=== PATIENT | female | born 1940 | race Caucasian/White ===

== ENCOUNTER 2020-07-18 16:10 | Emergency (ER) | payer MEDICARE, MEDICAID ==
[~2020-07-18] VITALS: Ht 160 cm; Wt 122.5 kg
[2020-07-18 16:13] VITALS: BP_SYST 86
[2020-07-18] MEDS ORDERED: SSREG SUBCUT (16:39)
[2020-07-18] MEDS ORDERED: ACET-73 PO (16:39)
[2020-07-18] MEDS ORDERED: OXYIR5 PO (16:39)
[2020-07-18] MEDS ORDERED: PRO40 PO (16:39)
[2020-07-18] MEDS ORDERED: FURO-150 PO (16:39)
[2020-07-18] MEDS ORDERED: UMEC62.5 IH (16:39)
[2020-07-18] MEDS ORDERED: BENA10TA73 PO (16:39)
[2020-07-18] MEDS ORDERED: ATOR40TA68 PO (16:39)
[2020-07-18] MEDS ORDERED: DICL50TA9 PO (16:39)
[2020-07-18] MEDS ORDERED: ALEN10TA25 PO (16:39)
[2020-07-18] MEDS ORDERED: BUSP10TA3 PO (16:39)
[2020-07-18] MEDS ORDERED: CYM30 PO (16:39)
[2020-07-18] MEDS ORDERED: TRAM100C3 PO (16:39)
[2020-07-18] MEDS ORDERED: BISA-79 PO (16:39)
[2020-07-18] MEDS ORDERED: METF-380 PO (16:39)
[2020-07-18] MEDS ORDERED: METO25TA3 PO (16:39)
[2020-07-18] MEDS ORDERED: DIPH25CA83 PO (16:39)
[2020-07-18] MEDS ORDERED: ESCI20TA PO (16:39)
[2020-07-18] MEDS ORDERED: DOCU-144 PO (16:39)
[2020-07-18] MEDS ORDERED: SENN8.6T19 PO (16:39)
[2020-07-18] MEDS ORDERED: MOM PO (16:39)
[2020-07-18] MEDS ORDERED: APIX5TAB4 PO (16:39)
[2020-07-18] MEDS ORDERED: FLO44 INH (16:39)
[2020-07-18 17:03] LABS: BILIRUBIN,URINE NEGATIVE (NEGATIVE); BLOOD, URINE 1+ (NEGATIVE); CLARITY/URINE SL CLOUDY (CLEAR); COLOR,URINE YELLOW (YELLOW); GLUCOSE,URINE NEGATIVE (NEGATIVE); KETONES,URINE NEGATIVE (NEGATIVE); LEUKOCYTE ESTERASE ,URINE 3+ (NEGATIVE); NITRITE, URINE POSITIVE (NEGATIVE); PROTEIN URINE NEGATIVE (NEGATIVE)
[2020-07-18 17:04] LABS: BASOPHILS # (AUTO) 0.1 K/uL (0.0-0.2); BASOPHILS % (AUTO) 0.8 % (0.0-2.0); EOSINOPHILS # (AUTO) 0.1 K/uL (0.0-0.4); EOSINOPHILS % (AUTO) 0.8 % (0.0-4.0); HEMOGLOBIN 9.6 g/dL (12.0-16.0); LYMPHOCYTES # (AUTO) 0.7 K/uL (1.0-5.5); LYMPHOCYTES % (AUTO) 8.3 % (20.5-51.5); MEAN CORPUSCULAR HEMOGLOBIN 32 pg (27-31); MEAN CORPUSCULAR HGB CONC 33 % (32-36); MEAN CORPUSCULAR VOLUME 95 fL (79.0-98.0); MONOCYTES # (AUTO) 0.4 K/uL (0.0-1.0); MONOCYTES % (AUTO) 4.6 % (1.7-9.3); NEUTROPHILS # (AUTO) 7.6 K/uL (1.8-7.7); NEUTROPHILS % (AUTO) 85.5 % (40.0-70.0); PLATELET COUNT (AUTO) 189 K/uL (130-430); RED BLOOD CELL COUNT(AUTO) 3.06 MIL/uL (4.2-6.2); RED CELL DISTRIBUTION WIDTH 18.3 % (9.0-15.0); WHITE BLOOD COUNT (AUTO) 8.9 K/uL (4.8-10.8)
[2020-07-18] MEDS ORDERED: NACL 0.9% 1,000 ML IV ONE (17:30)
[2020-07-18 17:33] LABS: BACTERIA,URINE MANY /HPF (None Seen); WBC,URINE 50-80 /HPF (0-3)
[2020-07-18 17:33] LABS: INR 1.2 (0.8-1.2); PROTHROMBIN TIME 12.5 SECS (9.5-12.5)
[2020-07-18 17:37] LABS: MUCUS,URINE 1+ /LPF (None Seen)
[2020-07-18 17:43] LABS: ANION GAP 8 (5-15); CALCIUM 7.8 mg/dL (8.4-11.0); CHLORIDE 104 mmol/L (98-107); CREATININE 0.99 mg/dL (0.55-1.30); GLUCOSE 111 mg/dL (70-99); POTASSIUM 3.9 mmol/L (3.5-5.1); SODIUM SERUM 140 mmol/L (136-145); UREA NITROGEN, BLOOD 18 mg/dL (8-21)
[2020-07-18 17:49] LABS: ALANINE AMINOTRANSFERASE 27 U/L (12-78); ALBUMIN 2.3 g/dL (3.4-4.8); ASPARTATE AMINOTRANSFERASE 23 U/L (10-37); TOTAL BILIRUBIN 1.3 mg/dL (0.0-1.0)
[2020-07-18] MEDS ORDERED: cefTRIAXone 1 GM in D5W 50 ML IV ONE (18:00)
[2020-07-18] MEDS ORDERED: cefTRIAXone 1 GM VIAL ONE (18:13)
[2020-07-18 20:11] VITALS: BP_SYST 103
[2020-07-18 23:42] LABS: C-REACTIVE PROTEIN QUANT 7.9 mg/dL (0-0.5)
== END 2020-07-18 20:12 | disposition home or self-care (01) ==
LOC: SED 16:10
DX: I10 Essential (primary) hypertension (principal); N39.0 Urinary tract infection, site not specified; Z79.899 Other long term (current) drug therapy; Z79.4 Long term (current) use of insulin; Z20.822 Contact with and (suspected) exposure to COVID-19
CPT/HCPCS: 36415; 71045; 80053; 81000; 82550; 83605; 83880; 84145; 84484; 85025; 85610; 85730; 86140; 87040; 87081; 87086; 87426; 93005; 93922; 96361; 96365; 99285; J0696; J7030